=== PATIENT | male | born 1945 | race Caucasian/White ===

== ENCOUNTER → 2017-05-04 | Outpatient (CLI) | END | disposition home or self-care (01) ==

== ENCOUNTER → 2018-07-12 | Outpatient (CLI) | payer MEDICARE, OTHER ==
--- NOTE | 2018-07-13 17:05 | RADRPT ---
PROCEDURE: XR Left hip and pelvis. CLINICAL INDICATION: Left hip pain and pelvic pain. TECHNIQUE: 3 views. Frontal pelvis. Frontal and lateral left hip. COMPARISON: None. 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 The right hip is grossly normal aside from mild degenerative change. Vascular calcifications are present consistent with atherosclerosis. There are degenerative changes of the lower lumbar spine. There is no lytic or blastic lesion. There is no radiopaque foreign body. IMPRESSION: 1. 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 2. Mild degenerative change of the right hip. 3. Atherosclerosis. 4. Degenerative changes of the lower lumbar spine. 5. Otherwise unremarkable study. RPTAT: QQ .Eugene Ibarra MD, MD Date Time Electronically viewed and signed by .Eugene Ibarra MD, on 07/13/2018 17:05 .R/
== END | disposition home or self-care (01) ==
LOC: HKI 09:04
PROVIDERS: ATTEND Orthopaedic Surgery
DX: M25.552 Pain in left hip (principal)
CPT/HCPCS: 73502; G0463